=== PATIENT | female | born 1955 | race Caucasian/White ===

== ENCOUNTER → 2024-09-12 | Outpatient (CLI) | payer MEDICARE, SELFPAY ==
[2024-09-12 12:17] LABS: Absolute Lymphocyte Count 2.19 X10^3/uL (0.83-4.51); Absolute Neutrophil Count 2.6 X10^3/uL (2.0-7.7); Basophil# 0.08 X10^3/uL; Basophil% 1.4 % (0-1); Eosinophil# 0.22 X10^3/uL; Eosinophils% 3.8 % (0-5); Hematocrit 42.5 % (37-47); Lymphocyte # 2.19 X10^3/ul (0.83-4.51); Lymphocyte % 38.3 % (19-41); Mean Corp Hgb Conc 32.9 g/dL (32-36); Mean Corpuscular Hgb 30.4 pg (27.0-32.0); Mean Corpuscular Volume 92.4 fL (81-99); Mean Platelet Vol. 9.1 fl (6.2-12.0); Monocyte% 10.5 % (0-10); NRBC Flagged by Analyzer 0 % (0-5); Neutrophil # 2.62 X10^3/uL (2.7-7.7); Neutrophil % 45.8 % (47-70); Platelet Count 297 K/mm3 (150-450); RBC Distribution Width CV 12.2 % (11.6-14.6); RBC Distribution Width SD 41.3 fl (35.1-43.9); White Blood Count 5.7 K/mm3 (4.4-11.0)
[2024-09-12 12:42] LABS: Vitamin D,25 Hydroxy 41.7 ng/mL
[2024-09-12 13:10] LABS: ALB/GLOB Ratio 1.1 RATIO (0.9-2.4); AST(SGOT) 14 U/L (15-37); Alanine Aminotransfer ALT/SGPT 16 U/L (13-56); Albumin, Serum 3.6 g/dL (3.2-5.0); Alkaline Phosphatase 79 U/L (45-117); Anion Gap 4 (5-15); BUN 15 mg/dL (7-18); BUN/Creat Ratio 13.8 RATIO (10-20); Calcium,Total 9.1 mg/dL (8.5-10.1); Chloride 104 mmol/L (98-107); Creatinine, Serum 1.09 mg/dL (0.55-1.02); EST Glomerular Filtration Rate 53 mL/min (>60); Est Glom Filt Rate - Afr Amer 64 mL/min (>60); Globulin 3.4 g/dL (2.2-4.2); Glucose 97 mg/dL (74-106); Sodium Level 138 mmol/L (136-145)
== END | disposition home or self-care (01) ==
PROVIDERS: PCP Internal Medicine; Referring Provider Internal Medicine; Visit Provider Internal Medicine
DX: M85.80 Other specified disorders of bone density and structure, unspecified site (principal); R25.1 Tremor, unspecified
CPT/HCPCS: 36415; 80053; 82306; 85025

== ENCOUNTER → 2024-10-26 | Outpatient (CLI) | payer MEDICARE, SELFPAY ==
--- NOTE | 2024-10-26 15:13 | BI_ITS ---
MAMMOGRAPHY - BILATERAL SCREENING REASON FOR EXAM: Female, 69 years old. Routine annual screening examination. PERTINENT HISTORY: Non-contributory. History of remote right breast biopsy. TECHNIQUE: Digital bilateral breast radha (3D mammographic acquisition) in the CC and MLO projections. 2-D mediolateral oblique (MLO) and craniocaudad (CC) views of both breasts were obtained. CAD: Full Field Digital Mammography with Computer Added Detection was performed. COMPARISON: Comparison is made with prior study dated November 26, 2020. FINDINGS: Breast Composition: The breasts are heterogeneously dense, which may obscure small masses. There are no dominant masses or suspicious calcifications. A tissue clip marker is seen in the slightly upper lateral aspect of the right breast. No other significant abnormalities are identified. There has been no significant change since the prior study. BI/SCRN MAMM (CAD)W/RADHA BILAT IMPRESSION: Stable bilateral screening mammogram. Yearly follow-up mammogram recommended. (A) ASSESSMENT CATEGORY: BIRADS Category 2: Benign. A letter regarding these results will be sent to the patient by the facility within 30 days. Approximately 10% of breast cancers are not detected by mammography. A normal mammogram should not delay biopsy of a clinically suspicious abnormality. [id number] Electronically Signed: Low Barcenas MD at 10:35 EST ,
--- NOTE | 2024-10-26 15:17 | BD_ITS ---
STUDY: DUAL ENERGY X-RAY ABSORPTIOMETRY / DXA REASON FOR EXAM: Female, 69 years old. Osteopenia TECHNIQUE: Bone Mineral Density (BMD) measurements of lumbar spine and bilateral hips were obtained. COMPARISON: None. FINDINGS: Lumbar Spine (L1-L4): g/cm2 (0.757) / T-score (-2.4) / Z-score (-0.3) Findings are suggestive of osteopenia with a high fracture risk. Left Femur Total: g/cm2 (0.623) / T-score (-2.6) / Z-score (-1.1) Left Femoral Neck: g/cm2 (0.5-6) / T-score (-2.9) / Z-score (-1.1) Right Femur Total: g/cm2 (0.612) / T-score (-2.7) / Z-score (-1.2) Right Femoral Neck: g/cm2 (0.491) / T-score (-3.2) / Z-score (-1.5) BD/Dexa Bone Density Study IMPRESSION: The patient is considered osteoporotic as outlined below according to World [employer] Organization (WHO) criteria with a high fracture risk. Reference Information: The T-score is the number of standard deviations above or below the standard which is normal for young adults at their peak bone mineral density. The World Health Organization (WHO) interprets the T-scores as follows: Above -1 Normal bone density Between -1 and -2.5 Osteopenia Equal to / or below -2.5 Osteoporosis As a practical clinical guideline, osteopenia may be graded as follows: Mild -1 through -1.5 Moderate -1.6 through -2.0 Severe -2.1 through -2.4 The Z-score is the number of standard deviations above or below age-matched controls. A Z-score of less than -1.5 would be considered abnormal. References: 1. NIH Osteoporosis and Related Bone Diseases www osteo.org 2. International Society for Clinical Densitometry www iscd.org 3. National Osteoporosis Foundation www nof.org Electronically Signed: Low Barcenas MD at 8:50 EST ,
== END | disposition home or self-care (01) ==
LOC: OPBD 15:09
PROVIDERS: PCP Internal Medicine; Referring Provider Internal Medicine; Visit Provider Internal Medicine
DX: Z12.31 Encounter for screening mammogram for malignant neoplasm of breast (principal); Z78.0 Asymptomatic menopausal state
CPT/HCPCS: 77063; 77067; 77080

== ENCOUNTER 2024-11-21 07:27 | Day surgery (SDC) | payer MEDICARE, SELFPAY ==
[2024-11-21] VITALS (7 sets, daily range): BP systolic 102–114; BP diastolic 70–85; PULSE 77–88; RESP 16–18; TEMP 2.7–37; O2SAT 92–100; BMI 20.8
--- NOTE | 2024-11-21 07:44 | PRE.ANES_ITS ---
ASA Classification* ASA Classification ASA Classification: 2 Assessment & Plan Anesthesia* Anesthesia Assessment Anesthesia Assessment: Discussed sedation and/or anesthesia options, risks, benefits, and alternatives with patient/parents/legal guardian/POA. Questions invited. The patient/parents/legal guardian/POA seems to understand and agrees to proceed with anesthesia plan. Reviewed the physical assessment, medical history, allergy history and patient home medications list prior to surgery/procedure/anesthetic and documented any changes. Performed airway and anesthesia risk assessments. Anesthesia Type Anesthesia Type: MAC Anesthesia Focused Assessment* Airway Assessment Mouth opens: >3 cm Mallampati Score: II Focused Labs Anesthesia Preop lab: CBC WBC 5.7 K/mm3 (4.4-11.0) 09/12/24 10:21 09/12/24 RBC 4.60 M/mm3 (4.2-5.4) 09/12/24 10:21 09/12/24 Hgb 14.0 g/dL (12.0-15.0) 09/12/24 10:21 09/12/24 Hct 42.5 % (37-47) 09/12/24 10:21 09/12/24 Plt Count 297 K/mm3 (150-450) 09/12/24 10:21 09/12/24 CHEMISTRY Potassium 4.0 mmol/L (3.5-5.1) 09/12/24 10:21 09/12/24 Sodium 138 mmol/L (136-145) 09/12/24 10:21 09/12/24 BUN 15 mg/dL (7-18) 09/12/24 10:21 09/12/24 Creatinine 1.09 mg/dL (0.55-1.02) H 09/12/24 10:21 Glucose 97 mg/dL (74-106) 09/12/24 10:21 09/12/24 COAG Pre-Assessment Diagnosis/Proposed Procedure Planned Operative Procedure(s): Colonoscopy - Open Access Anesthesia History 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 When Was Last Pacemaker Check QUESTION #4 FULL TEXT: You/Your Family Experience fever (hyperthermia) with Anesthesia Last Oral Intake Last Oral intake: Last Oral Intake NPO since Meds taken in AM with sips of water? 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 Female Yes 11/16/24 15:43 HX of Motion Sickness No 11/16/24 15:43 HX of N/V After Surgery No 11/16/24 15:43 Non-Smoker Yes 11/16/24 15:43 Duration of Surgery greater No 11/16/24 15:43 than 60 minutes Number of Risk Factors 2 11/16/24 15:43 PONV Score Moderate Risk 11/16/24 15:43 Height & Weight Height & Weight: Anesthesia: Height & Weight Height 5 ft 4 in 09/26/24 09:44 Respiratory Assessment Respiratory Assessment - banquet kitchen supervisor: Respiratory Tract Infection Hx - banquet kitchen supervisor Hx Respiratory Tract Infection No 11/16/24 15:43 STOP Sleep Apnea STOP Sleep Apnea - banquet kitchen supervisor: STOP Sleep Apnea - banquet kitchen supervisor Hx Hypertension No 11/16/24 15:43 Hx Sleep Apnea No 11/16/24 15:43 CPAP BIPAP Do you snore loudly (louder No 11/16/24 15:43 than talking or can be heard Do you often feel tired/ No 11/16/24 15:43 fatigued/ sleepy during daytime? Has anyone observed you stop No 11/16/24 15:43 breathing during sleep? STOP Results Negative 11/16/24 15:43 QUESTION #5 FULL TEXT : Do you snore loudly (louder than talking or can be heard through closed doors)? 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 Specify any problems Hx of Preganancy in last 3 No 11/16/24 15:43 Months Nurse Filling Out Transfusion VCHRISTIN 11/16/24 15:43 & Questions: Date: 11/16/24 11/16/24 15:43 Time: 15:44 11/16/24 15:43 Patient unable to answer at this time (ie. confused, unrespo /Reproduction History /Reproductive History - banquet kitchen supervisor: /Reproductive Hx- banquet kitchen supervisor Hx Now Gestational Age (in weeks): EDC: Hx Hx Para Hx Section SAB PFSH Medical History Wears glasses Post-menopausal Anxiety Alcohol use Back pain Non-smoker Personal history of colonic polyps Health care maintenance Anxiety and depression Snoring Tremor Colon cancer screening Osteopenia Seasonal allergies Cataracts, bilateral Home Medications ?Medication ?Instructions ?Recorded ?Last Taken ?Type bupropion HCl 150 mg 24 hr tablet, 150 mg PO QDAY 08/20 03/11 Unknown History extended release citalopram 20 mg tablet 20 mg PO QDAY 09/12/24 Unkno wn History trazodone 50 mg tablet 25 mg PO QHS PRN sleep 09/12 Unknown History Allergy/AdvReac Type Severity Reaction Status Date / Time Sulfa (Sulfonamide Allergy Intermediate Hives Verified 11/16/24 15:37 Antibiotics) Family History Father Heart disease Myocardial infarction Hypertension Mother Hypertension CVA (cerebral vascular accident) Uncle Colon cancer Surgical History Hx of colonoscopy History of 2 sections Social History household members: spouse housing: house current occupational status: retired Smoking Status: Never smoker alcohol intake: never substance use type: does not use what type of physical activity do you participate in: none seatbelt use: always do you feel safe at home: Yes Review of Systems (Anesthesia) ROS Narrative System reviewed and no additional complaints, except as documented.
--- NOTE | 2024-11-21 08:05 | H&P.OPEN ---
[facility] - General General Date of Service: 11/21/24 HPI Narrative MICHAEL CASILLAS, is a 69 F who presents for screening colonoscopy. Patient last colonoscopy was 04/2016 at [facility] recommend follow-up colonoscopy in 5 years?history of colon polyps. Patient's has bowel movements daily denies any blood. Patient denies any chronic abdominal pain/nausea/vomiting/reflux. Patient's maternal uncle had colon cancer in his 50s. [facility] Medical History (Updated 11/21/24 @ 08:[address] Kristel Anguiano MD) Wears glasses Post-menopausal Anxiety Alcohol use Back pain Non-smoker Personal history of colonic polyps Health care maintenance Anxiety and depression Snoring Tremor Colon cancer screening Osteopenia Seasonal allergies Cataracts, bilateral Home Medications ?Medication ?Instructions ?Recorded ?Last Taken ?Type bupropion HCl 150 mg 24 hr tablet, 150 mg PO QDAY 09/12/24 11/20/24 History extended release citalopram 20 mg tablet 20 mg PO QDAY 09/12/24 11/20/24 History trazodone 50 mg tablet 25 mg PO QHS PRN sleep 09/12/24 11/20/24 History Allergy/AdvReac Type Severity Reaction Status Date / Time Sulfa (Sulfonamide Allergy Intermediate Hives Verified 11/21/24 07:48 Antibiotics) Family History Father Heart disease Myocardial infarction Hypertension Mother Hypertension CVA (cerebral vascular accident) Uncle Colon cancer Surgical History Hx of colonoscopy History of 2 sections Social History household members: spouse housing: house current occupational status: retired Smoking Status: Never smoker alcohol intake: never substance use type: does not use what type of physical activity do you participate in: none seatbelt use: always do you feel safe at home: Yes Past Medical/Surgical History Planned Operation Planned Operative Procedure(s): Colonoscopy - Open Access Cardiovascular Hx Hypertension: No Respiratory Hx Sleep Apnea: No Do You Snore Loudly (louder than talking or can be heard): No Do You Often Feel Tired/ Fatigued/ Sleepy Dring Daytime?: No Has Anyone Observed You Stop Breathing During Sleep?: No Result (for STOP score): Negative Smoking Status: Never smoker Miscellaneous Recent Exposure to Contagious Disease: No Allergies Sulfa (Sulfonamide Antibiotics) Allergy (Intermediate, Verified 11/21/24 07:48) Hives Discharge Is Pt Admitted From a Prison, or a [facility]sp: No After D/C, Where Do you Plan to Go: Return Home Vital Signs Vital Signs Vital Signs: 11/21/24 07:48 11/21/24 07:48 Temperature 97.8 F Temperature Source Temporal Pulse Rate 77 Respiratory Rate 16 Respiratory Pattern Normal Blood Pressure 113/77 Blood Pressure Mean 89 Blood Pressure Source Monitor Blood Pressure Position Semi-Fowlers Blood Pressure Location Left Arm Pulse Ox 98 Oxygen Delivery Method Room Air Weight Weight: 121 lb 7.595 oz Body Mass Index (BMI) 20.8 Physical Exam Const alert, oriented x3 and no apparent distress HEENT normocephalic and head/scalp atraumatic Resp normal respiratory effort Cardio regular rate GI soft to palpation and non-tender; Negative for non-distended Palpation: Negative for guarding Extremity no clubbing, cyanosis or edema Skin no rashes or lesions noted Neuro CN's II-XII intact bilaterally Psych mental status grossly normal Assessment & Plan Assessment/Plan (1) Personal history of colonic polyps: Surgery Risks - Colonoscopy I discussed with the patient the risks of the procedure: Yes Risks Include but are not Limited To: Risks include but are not limited to: Bleeding, perforation requiring further surgery, inability to complete colonoscopy requiring barium enema.
--- NOTE | 2024-11-21 08:45 | COLBX_PTH ---
PATIENT: MICHAEL CASILLAS LOC: EN U#:[id number] AGE/SX: 69/F ROOM: RE11/21/[address]: Dr. Kristel Anguiano MD : 1955 BED: DIS: 11/21/2024 SPEC #: [id number] RECD: 11/21/24 10:43 STATUS: OMAR REQ #: [id number] MARIA LUZ: 11/21/24 08:[address]: Kristel Anguiano DEPT: SURGICAL PATHOLOGY RECD BY: Tessa Rivera ENTERED: 11/21/24 11:13 SP TYPE: COLON BX OTHR DR: Dr. Marcus De La Cruz MD Tissues: Ascending colon Procedures: Surgery Specimen Level IV HEADER OPERATION: Colonoscopy with polypectomy PRE-OP DIAGNOSIS: Personal history of colonic polyps TISSUE SUBMITTED: Ascending colon polyps MICROSCOPIC DIAGNOSIS Ascending colon polyps, polypectomy: Fragments of tubular adenoma. PW.mr 11/22/2024 MICROSCOPIC DESCRIPTION Slides are reviewed. GROSS DESCRIPTION Received in fixative is one container labeled with the patient's name and designated Ascending colon polyps. The specimen consists of multiple irregular fragments of light albarran soft tissue that in aggregate measure 1.4 x 0.3 x 0.2 cm. The specimen is totally submitted in one cassette. 11/21/2024 TC:5 CPT:03662
--- NOTE | 2024-11-21 09:26 | PCM.POST.ANE ---
Anesthesia: Postop Eval I Current Vital Signs Temperature: 37 F Pulse Rate: 78 Blood Pressure: 110/70 Respiratory Rate: 18 Pulse Ox: 94 Oxygen Delivery Method: Room Air Assessment Airway patent: Yes Spontaneous unlabored respirations: Yes Mental status: Awake and Calm nausea: No Vomiting: No Anesthesia Complication: No Fluid Hydration Crystalloid volume administer (ml): 10 Total IV fluid infused: 10 Progress Note Anesthesia document: Postop Eval 1 completed: Yes
--- NOTE | 2024-11-21 09:30 | OP.COLON_ITS ---
Patient Name: Helen Vazquez Procedure Date: 11/21/2024 8:45 AM Date of : 1955 Age: 69 Procedure: Colonoscopy Indications: High risk colon cancer surveillance: Personal history of colonic polyps Providers: Kristel Anguiano MD Medicines: Monitored Anesthesia Care Patient Profile: This is a 69 year old female. Last Colonoscopy: 2015. Complications: No immediate complications. Procedure: Pre-Anesthesia Assessment: - Prior to the procedure, a History and Physical was performed, and patient medications and allergies were reviewed. The patient's tolerance of previous anesthesia was also reviewed. The risks and benefits of the procedure and the sedation options and risks were discussed with the patient. All questions were answered, and informed consent was obtained. Prior Anticoagulants: The patient has taken no anticoagulant or antiplatelet agents. ASA Grade Assessment: Per anesthesia. After reviewing the risks and benefits, the patient was deemed in satisfactory condition to undergo the procedure. After I obtained informed consent, the scope was passed under direct vision. Throughout the procedure, the patient's blood pressure, pulse, and oxygen saturations were monitored continuously. The Colonoscope was introduced through the anus and advanced to the cecum, identified by the appendiceal orifice, ileocecal valve and palpation. The colonoscopy was performed without difficulty. The colonoscopy was somewhat difficult due to a tortuous colon. Scope In: 8:57:52 AM Scope Withdrawal Time 0 hours 11 minutes 12 seconds Scope Out: 9:21:47 AM Total Procedure Duration Time 0 hours 23 minutes 55 seconds Findings: Multiple small-mouthed diverticula were found in the sigmoid colon. Two sessile polyps were found in the ascending colon. The polyps were less than 5 mm in size. These polyps were removed with a hot snare. Resection and retrieval were complete. Non-bleeding internal hemorrhoids were found. The hemorrhoids were Grade I (internal hemorrhoids that do not prolapse). Impression: - Diverticulosis in the sigmoid colon. - Two less than 5 mm polyps in the ascending colon, removed with a hot snare. Resected and retrieved. - Non-bleeding internal hemorrhoids. Recommendation: - Repeat colonoscopy in 5-10 years for surveillance based on pathology results. - Continue present medications. Procedure Code(s): --- Professional --- 23748, PT, Colonoscopy, flexible; with removal of tumor(s), polyp(s), or other lesion(s) by snare technique Diagnosis Code(s): --- Professional --- Z86.010, Personal history of colonic polyps K64.0, First degree hemorrhoids D12.2, Benign neoplasm of ascending colon K57.30, Diverticulosis of large intestine without perforation or abscess without bleeding CPT copyright 2021 [employer]. All rights reserved. The codes documented in this report are preliminary and upon follow up specialist review may be revised to meet current compliance requirements. MD Kristel Shaver MD 11/21/2024 9:30:11 AM This report has been signed electronically. Number of Addenda: 0 Note Initiated On: 11/21/2024 8:45 AM
--- NOTE | 2024-11-21 09:30 | OP.CCLET_ITS ---
11/21/2024 Marcus De La Cruz MD [address] [place] [address] [place] [address] Re : Colonoscopy procedure for Helen George Dear Dr. De La Cruz This procedure was performed on Thursday, November 21, 2024. My impressions and recommendations are as follows: Impressions : - Diverticulosis in the sigmoid colon. - Two less than 5 mm polyps in the ascending colon, removed with a hot snare. Resected and retrieved. - Non-bleeding internal hemorrhoids. Recommendations : - Repeat colonoscopy in 5-10 years for surveillance based on pathology results. - Continue present medications. My findings are described in the full procedure note, which is enclosed. If I can be of further assistance, please feel free to contact me at Doctor phone number(s): , Work: . Sincerely, MD Kristel Shaver MD 11/21/2024 9:30:11 AM This report has been signed electronically.
--- NOTE | 2024-11-21 10:42 | POSTOPAN2_ITS ---
Anesthesia Postop Eval I Sum Postop Eval Completion status Anesthesia document: Postop Eval 1 completed: Yes Anesthesia Postop Eval I Summary Anesthesia Postop Eval I Summary: Anesthesia Postop Eval I: Assessment Summary Airway patent Yes 11/21/24 09:27 SUPERINTENDENT TRANSMISSION.DELI Spontaneous unlabored Yes 11/21/24 09:27 SUPERINTENDENT TRANSMISSION.MARCOS respirations Mental status Awake,Calm 11/21/24 09:27 SUPERINTENDENT TRANSMISSION.DELI nausea No 11/21/24 09:27 SUPERINTENDENT TRANSMISSION.DELI Vomiting No 11/21/24 09:27 SUPERINTENDENT TRANSMISSION.MARCOS Anesthesia Postop Eval I: Fluid Summary Crystalloid volume administer 10 11/21/24 09:27 SUPERINTENDENT TRANSMISSION.JCLI (ml) Colloids volume administered ( ml) Blood Product volume administered (ml) Total IV fluid infused 10 11/21/24 09:27 SUPERINTENDENT TRANSMISSION.MARCOS Anesthesia Postop Eval I: Summary Notes Anesthesia Complication No 11/21/24 09:27 SUPERINTENDENT TRANSMISSION.MARCOS Anesthesia Complication Comment: Post-operative progress note Anesthesia: Postop Eval II Evaluation Mental status: Awake Pain Level: 0 nausea: No Vomiting: No
--- NOTE | 2024-11-21 10:42 | PCM.POSTANE2 ---
Anesthesia Postop Eval I Sum Postop Eval Completion status Anesthesia document: Postop Eval 1 completed: Yes Anesthesia Postop Eval I Summary Anesthesia Postop Eval I Summary: Anesthesia Postop Eval I: Assessment Summary Airway patent Yes 11/21/24 09:27 DYEING MACHINE BACK TENDER.DELI Spontaneous unlabored Yes 11/21/24 09:27 DYEING MACHINE BACK TENDER.MARCOS respirations Mental status Awake,Calm 11/21/24 09:27 DYEING MACHINE BACK TENDER.DELI nausea No 11/21/24 09:27 DYEING MACHINE BACK TENDER.DELI Vomiting No 11/21/24 09:27 DYEING MACHINE BACK TENDER.MARCOS Anesthesia Postop Eval I: Fluid Summary Crystalloid volume administer 10 11/21/24 09:27 DYEING MACHINE BACK TENDER.JCLI (ml) Colloids volume administered ( ml) Blood Product volume administered (ml) Total IV fluid infused 10 11/21/24 09:27 DYEING MACHINE BACK TENDER.MARCOS Anesthesia Postop Eval I: Summary Notes Anesthesia Complication No 11/21/24 09:27 DYEING MACHINE BACK TENDER.MARCOS Anesthesia Complication Comment: Post-operative progress note Anesthesia: Postop Eval II Evaluation Mental status: Awake Pain Level: 0 nausea: No Vomiting: No
== END 2024-11-21 10:14 | disposition home or self-care (01) ==
LOC: EN 07:27 → AC 07:28
PROVIDERS: PCP Internal Medicine; Referring Provider Internal Medicine; Visit Provider Surgery
PROC: 0DJD8ZZ Inspection of Lower Intestinal Tract, Via Natural or Artificial Opening Endoscopic (ICD-10-PCS; CPT 45378; principal; 2024-11-21 08:40)
DX: Z12.11 Encounter for screening for malignant neoplasm of colon (principal); D12.2 Benign neoplasm of ascending colon; Z86.0100 Personal history of colon polyps, unspecified; K64.0 First degree hemorrhoids; K57.30 Diverticulosis of large intestine without perforation or abscess without bleeding; F41.9 Anxiety disorder, unspecified; Z79.899 Other long term (current) drug therapy
CPT/HCPCS: 45385; 88305; A4216

== ENCOUNTER → 2025-06-23 | Outpatient (CLI) | payer MEDICARE, SELFPAY ==
--- NOTE | 2025-06-23 08:40 | CT_ITS ---
PROCEDURE: ORB SELLA POST FOSSA EAR W/O 06/23/2025 REASON FOR EXAM: PULSATILE TINNITUS RIGHT PULSE TECHNIQUE: Procedure Code: CTORB Modality: CT Procedure: ORB SELLA POST FOSSA EAR W/O One or more dose reduction techniques were used (e.g., Automated exposure control, adjustment of the mA and/or kV according to patient size, use of iterative reconstruction technique). CONTRAST: None RADIATION DOSE SUMMARY: CTDlvol: 68 mGy DLP: 713 mGycm COMPARISON: None. FINDINGS: Right-side: The right epitympanum, hypotympanum and tympanic cavity negative. Scutum intact. Ossicular chain intact. Inner ear otherwise negative. Negative for cholesteatoma. External auditory canal negative. Mastoid air cells and remainder of the right temporal bone negative. Specifically, no evidence of dehiscence between the carotid canal and the inner ear Furthermore right jugular bulb is normally located and not high-riding. Left side: The left epitympanum, hypotympanum and tympanic cavity negative. Scutum intact. Ossicular chain intact. Inner ear intact. External auditory canal negative. Left mastoid air cells negative. Mild mucosal disease in the maxillary sinuses. Remainder of the skull base otherwise negative. Adjacent structures negative. CT/Orb Sella Post Fossa Ear w/o IMPRESSION: Negative CT of the temporal bones. Bilateral carotid and jugular systems normal. Reading Location: [id number]
== END | disposition home or self-care (01) ==
PROVIDERS: PCP Internal Medicine; Referring Provider Otolaryngology; Visit Provider Otolaryngology
DX: H93.A1 Pulsatile tinnitus, right ear (principal)
CPT/HCPCS: 70480